=== PATIENT | male | born 1990 | race Caucasian/White ===

== ENCOUNTER 2024-08-02 08:19 | Emergency (ER) | payer OTHER, SELFPAY ==
[2024-08-02 08:29] VITALS: BP 128/95; PULSE 81; RESP 20; TEMP 36.8; O2SAT 100; BMI 32.1
--- NOTE | 2024-08-02 08:35 | DI.CT.S_ITS ---
PROCEDURE: CT HEAD/BRAIN WO CON INDICATIONS: head injury TECHNIQUE: Noncontrast 4.5 mm thick angled axial sections acquired from the foramen magnum to the vertex, with coronal and sagittal reformats. For radiation dose reduction, the following was used: automated exposure control, adjustment of mA and/or kV according to patient size. COMPARISON: None. FINDINGS: Image quality: Diagnostic. CSF spaces: Basal cisterns are patent. No extra-axial fluid collections. Ventricles are normal in size and shape. Brain: No midline shift. No intracranial masses or hemorrhage. Conte-white matter interface is normal. Skull and face: Calvarium and visualized facial bones are intact, without suspicious lesions. Sinuses: Visualized sinuses demonstrate scattered mucosal thickening most prominent in the ethmoid air cells. IMPRESSION: No acute intracranial pathology. Dictated by: Katy Ugarte M.D. on 08/02/2024 at 8:46 Approved by: Katy Ugarte M.D. on 08/02/2024 at 8:48
--- NOTE | 2024-08-02 08:50 | ED_ITS ---
HPI - Head Injury General Chief complaint: Head Injury Stated complaint: Work out cable hit him in the head Time Seen by Provider: 08/02/24 08:41 Source: patient, RN notes reviewed and old records reviewed Mode of arrival: Ambulatory Limitations: no limitations History of Present Illness HPI Narrative: 34-year-old male was working out. Was doing pull Downs on a weight machine with a about 96 lb of weight when the cable snapped in the middle pull down bar hit the patient in the head as he was pulling at towards him. This occurred about 630 this morning. Patient states kind of in the right side. He states he has had only little bit of mild headache some dizziness, little bit of blurred vision, at bedside notes he has been a little bit repetitive since it happened. She also notes he has been sort of emotionally up and down crying intermittently. No loss of consciousness. Patient states he was standing when this occurred, did not get knocked down. No nausea or vomiting. No neck or back pain. Numbness, tingling or weakness. No difficulty with gait or ambulation. Patient does not take any daily medications. Denies any prior surgeries. No known drug allergies. No tobacco, no regular alcohol or recreational drugs. He was accompanied by his . Patient and family both known he has had a recent mild upper respiratory infection with some mild rhinorrhea for the past several days. Review of Systems Review of Systems ROS Unobtainable: All systems reviewed & are unremarkable except as noted in HPI and below Patient History Social History Smoking Status: Never smoker Smoking Status: Never smoker Exam Narrative Exam Narrative: GEN: Patient appears in mild distress. HEAD: No evidence of trauma, no raccoon/Lebron sign. NECK: Nontender, painless range of motion, trachea midline Night Nexus criteria, no midline line tenderness, distracting injury, altered mental status, neuro deficit, recent EtOH. EYES: PERRLA, EOMI ENT: External inspection normal, trachea is midline, TM's are normal no hemotypanum, Nares patient has some mild rhinorrhea, no septal hematoma, no dental or oral injury, airway is normal and with normal occlusion, No bony tenderness RESP: Chest is nontender and has symmetric movement, no ecchymosis, breath michael nds are normal no crackles, wheezes or rales CVS: Heart sounds are normal, no murmur noted, No JVD. ABG/GI: Nontender, soft, normal bowel sounds, no distention, no organomegaly, pelvic rock is negative NEURO: Oriented AOx3, 5/5 muscle strength upper and lower extremities, [id number] and heel-crandall are normal bilaterally, no dysarthria, no aphasia, sensation and motor is normal all 4 extremities moving, cranial nerves II through XII are intact, GCS is 15. Normal gait. PSYCH: Normal affect, patient did become tearful during evaluation. SKIN: Intact, warm and dry, no crepitus and without decubitus BACK: No CVA tenderness, no vertebral tenderness, no step-off's, no crepitus EXT: Atraumatic, normal range of motion. Initial Vital Signs Initial Vital Signs: Vital Signs Temperature 98.2 F 08/02/24 08:29 Pulse Rate 81 08/02/24 08:29 Respiratory Rate 20 08/02/24 08:29 Blood Pressure 128/95 H 08/02/24 08:29 Pulse Oximetry 100 08/02/24 08:29 Oxygen Delivery Method Room Air 08/02/24 08:29 Scores GCS Nic coma scale eye opening: Spontaneous [place] coma scale verbal response: Orientated [place] coma scale motor response: Obey commands Nic coma scale total score: 15 Course Orders Ordered: ED Orders 08/02/24 08:35 CT head/brain wo con Stat Vital Signs Vital signs: Vital Signs - 8 hr 08/02/24 08:29 Temperature 98.2 F Pulse Rate 81 Respiratory Rate 20 Blood Pressure 128/95 H Pulse Oximetry 100 Oxygen Delivery Method Room Air MDM - Head Injury MDM Narrative Medical decision making narrative: 34-year-old male who was weightlifting with a pull-down bar was attached about 95 lb. The cable snapped and hit the patient in the head no loss of consciousness he was able to stay standing but has been a little bit repetitive with a his although not so much with me he has been emotionally labile, has had some dizziness and blurred vision. No neck or back pain. His neurologic exam is otherwise normal. Head CT shows no acute intracranial process. 34-year-old male appears to have concussive symptoms after being struck by a pull-down bar of the head that has attached to a heavy weight. No loss of consciousness. Patient is felt appropriate for discharge home but with return precautions. Discharge Plan Departure Patient Disposition: Home Clinical Impression: Concussion Instructions: Concussion Activity Restrictions/Additional Instructions: Follow up for recheck as needed. If your symptoms last more than a week please follow up. You may return to normal activity as your symptoms resolve. No contact sports or activities until you has been asymptomatic for a week. You can take acetaminophen a 1000 mg every 6 hours and/or ibuprofen 600 mg every 6 hours as needed for pain. Please return for severe headaches, sudden vision changes, passing out, new numbness tingling or weakness, loss of bowel or bladder control, persistent vomiting or other new or concerning changes Referrals: ProviderMaria Del Rosario [Primary Care Provider] - Stand Alone Forms: Patient Portal/API/Survey, Work Release Note
[2024-08-02 09:25] VITALS: BP 129/80; PULSE 73; RESP 20; TEMP 36.6; O2SAT 100
== END 2024-08-02 09:27 | disposition home or self-care (01) ==
PROVIDERS: Emergency Provider Emergency Medicine
DX: S06.0X0A Concussion without loss of consciousness, initial encounter (principal); R42 Dizziness and giddiness; W22.8XXA Striking against or struck by other objects, initial encounter
CPT/HCPCS: 70450; 99281; 99284